=== PATIENT | female | born 1980 | race Caucasian/White ===

== ENCOUNTER 2016-11-28 16:15 | Emergency (ER) | payer OTHER ==
[2016-11-28 18:52] LABS: BASOPHIL % 0.7 % (0-2); PLATELET COUNT 302 x10^3mcL (130-400); RED CELL DISTRIBUTION WIDTH 14.3 % (11.5-14.5)
[2016-11-28 18:57] LABS: CALCIUM 8.4 mg/dL (8.5-10.1); CARBON DIOXIDE 26.4 mmol/L (21-32); CHLORIDE SERUM 106 mmol/L (98-107); CREATININE SERUM 0.5 mg/dL (0.6-1.0); GFR1 > 60 mL/min; GLUCOSE SERUM 96 mg/dL (74-106); POTASSIUM SERUM 3.8 mmol/L (3.5-5.1); SODIUM SERUM 142 mmol/L (136-145)
[2016-11-28 19:01] LABS: ALBUMIN 3.6 g/dL (3.4-5.0); ALKALINE PHOSPHATASE 53 U/L (46-116); ALT/SGPT 25 U/L (14-59); AST/SGOT 10 U/L (15-37); BILIRUBIN TOTAL 0.19 mg/dL (0.20-1.00); TOTAL PROTEIN, SERUM 7.4 g/dL (6.4-8.2)
[2016-11-28 19:38] VITALS: BP 148/83
== END 2016-11-28 19:38 | disposition home or self-care (01) ==
LOC: ED 16:15
PROVIDERS: Emergency Medicine
DX: I10 Essential (primary) hypertension (principal); R60.9 Edema, unspecified; I83.91 Asymptomatic varicose veins of right lower extremity
CPT/HCPCS: 36415; J1885